=== PATIENT | female | born 1965 | race Caucasian/White ===

== ENCOUNTER 2020-08-08 15:34 | Outpatient (CLI) | payer BC ==
--- NOTE | 2020-08-08 16:37 | XRAY Report ---
PROCEDURE: Tib/Fib LT INDICATIONS: L LEG PX TECHNIQUE: 2 views of the tibia and fibula were acquired. COMPARISON: None. FINDINGS: Plate and screw fixation of the proximal tibia. Hardware appears intact. Expected postoperative align ment Left knee joint degeneration. Scattered subchondral sclerosis and spurring. Soft tissue swellin g overlying the medial malleolus IMPRESSION: Postsurgical and degenerative changes as above Reviewed by: Brian Calderon MD on 08/08/2020 4:35 PM PST Approved by: Brian Calderon MD on 08/08/2020 4:35 PM PST Station ID: [id number]
== END 2020-08-08 15:35 | disposition home or self-care (01) ==
LOC: DI.N 15:34
PROVIDERS: ATTEND Nurse Practitioner
DX: M79.605 Pain in left leg (principal)

== ENCOUNTER 2020-11-23 14:59 | Outpatient (CLI) | payer BC | END 2020-11-23 23:59 | disposition home or self-care (01) | LOC: LAB.R 14:59 | PROVIDERS: ATTEND Physician Assistant Medical | DX: R21 Rash and other nonspecific skin eruption (principal) | CPT/HCPCS: 87070; 87081; 87205 ==

== ENCOUNTER 2021-01-17 09:09 | Outpatient (CLI) | payer BC ==
[2021-01-17 09:45] LABS: BASOPHILS % (AUTO) 0.5 %; EOSINOPHILS # (AUTO) 0.1 10^3/uL (0.0-0.7); HGB - HEMOGLOBIN 13.4 g/dL (12.0-16.0); LYMPHOCYTES # (AUTO) 1.3 10^3/uL (1.5-3.5); MEAN CORPUSCULAR HEMOGLOBIN 29.5 pg (27.0-31.0); MEAN CORPUSCULAR HGB CONC 32.7 g/dL (32.0-36.0); MEAN CORPUSCULAR VOLUME 90.1 fL (81.0-99.0); MEAN PLATELET VOLUME 8.7 fL (7.9-10.8); MONOCYTES # (AUTO) 0.4 10^3/uL (0.0-1.0); MONOCYTES % (AUTO) 6.8 %; NEUTROPHILS # (AUTO) 3.6 10^3/uL (1.5-6.6); NEUTROPHILS % (AUTO) 66.3 %; PLT - PLATELET COUNT 259 10^3/uL (130-450); RED BLOOD COUNT 4.55 10^6/uL (4.20-5.40); RED CELL DISTRIBUTION WIDTH 13.1 % (12.0-15.0); WHITE BLOOD COUNT 5.5 x10^3/uL (4.8-10.8)
[2021-01-17 10:05] LABS: ALBUMIN/GLOBULIN RATIO 1.2 (1.0-2.2); ALKALINE PHOSPHATASE 86 IU/L (42-121); ALT ALANINE AMINOTRANSFERASE 29 IU/L (10-60); AST ASPARTATE AMINOTRANSFERASE 25 IU/L (10-42); BILIRUBIN,TOTAL 0.7 mg/dL (0.2-1.0); BUN - BLOOD UREA NITROGEN 16 mg/dL (6-20); CALCIUM 9.1 mg/dL (8.5-10.3); CARBON DIOXIDE - CO2 28 mmol/L (21-32); CHLORIDE 104 mmol/L (101-111); CHOL/HDL RATIO 3.8 (<4.4); CHOLESTEROL 181 mg/dL; CREATININE 0.7 mg/dL (0.4-1.0); GFR - MDRD 87 (>89); GLUCOSE 98 mg/dL (70-100); HDL CHOLESTEROL 48 mg/dL; LDL CHOLESTEROL,CALCULATED 122 mg/dL; LDL/HDL RATIO 2.5 (<4.4); POTASSIUM 4.3 mmol/L (3.5-5.0); SODIUM 140 mmol/L (135-145); TOTAL PROTEIN 7.4 g/dL (6.7-8.2); TRIGLYCERIDES 54 mg/dL; VLDL CHOLESTEROL 11 mg/dL
[2021-01-17 10:15] LABS: THYROID STIMULATING HORMONE 1.21 uIU/mL (0.34-5.60)
== END 2021-01-17 09:10 | disposition home or self-care (01) ==
LOC: LAB 09:09
PROVIDERS: ATTEND Physician Assistant Medical
DX: Z00.00 Encounter for general adult medical examination without abnormal findings (principal); R21 Rash and other nonspecific skin eruption
CPT/HCPCS: 36415; 80053; 80061; 83721; 84443; 85025

== ENCOUNTER 2022-11-23 07:28 | Outpatient (CLI) | payer BC ==
[2022-11-23 07:50] LABS: BASOPHILS % (AUTO) 0.7 %; EOSINOPHILS # (AUTO) 0.1 10^3/uL (0.0-0.7); EOSINOPHILS % (AUTO) 1.6 %; HCT - HEMATOCRIT 41.2 % (37.0-47.0); HGB - HEMOGLOBIN 13.9 g/dL (12.0-16.0); LYMPHOCYTES # (AUTO) 1.3 10^3/uL (1.5-3.5); LYMPHOCYTES % (AUTO) 24.4 %; MEAN CORPUSCULAR HGB CONC 33.7 g/dL (32.0-36.0); MEAN CORPUSCULAR VOLUME 88.8 fL (81.0-99.0); MEAN PLATELET VOLUME 8.9 fL (7.9-10.8); MONOCYTES # (AUTO) 0.4 10^3/uL (0.0-1.0); MONOCYTES % (AUTO) 6.4 %; NEUTROPHILS # (AUTO) 3.6 10^3/uL (1.5-6.6); NEUTROPHILS % (AUTO) 66.5 %; PLT - PLATELET COUNT 236 10^3/uL (130-450); RED BLOOD COUNT 4.64 10^6/uL (4.20-5.40); RED CELL DISTRIBUTION WIDTH 12.6 % (12.0-15.0); WHITE BLOOD COUNT 5.5 x10^3/uL (4.8-10.8)
[2022-11-23 08:13] LABS: ALBUMIN 4.2 g/dL (3.2-5.5); ALBUMIN/GLOBULIN RATIO 1.3 (1.0-2.2); ALKALINE PHOSPHATASE 78 IU/L (42-121); ALT ALANINE AMINOTRANSFERASE 28 IU/L (10-60); AST ASPARTATE AMINOTRANSFERASE 29 IU/L (10-42); BILIRUBIN,TOTAL 0.8 mg/dL (0.2-1.0); BUN - BLOOD UREA NITROGEN 21 mg/dL (6-20); CALCIUM 8.8 mg/dL (8.5-10.3); CARBON DIOXIDE - CO2 25 mmol/L (21-32); CHLORIDE 102 mmol/L (101-111); CHOL/HDL RATIO 3.8 (<4.4); CHOLESTEROL 185 mg/dL; CREATININE 0.7 mg/dL (0.4-1.0); GFR - MDRD 86 (>89); GLUCOSE 106 mg/dL (70-100); HDL CHOLESTEROL 49 mg/dL; LDL CHOLESTEROL,CALCULATED 125 mg/dL; LDL/HDL RATIO 2.6 (<4.4); POTASSIUM 3.8 mmol/L (3.5-5.0); SODIUM 137 mmol/L (135-145); TOTAL PROTEIN 7.4 g/dL (6.7-8.2); TRIGLYCERIDES 56 mg/dL; VLDL CHOLESTEROL 11 mg/dL
[2022-11-23 08:24] LABS: THYROID STIMULATING HORMONE 1.49 uIU/mL (0.34-5.60)
== END 2022-11-23 07:29 | disposition home or self-care (01) ==
LOC: LAB 07:28
PROVIDERS: ATTEND Physician Assistant Medical
DX: Z00.00 Encounter for general adult medical examination without abnormal findings (principal)
CPT/HCPCS: 36415; 80053; 80061; 83721; 84443; 85025

== ENCOUNTER 2024-01-22 09:34 | Outpatient (CLI) | payer BC ==
[2024-01-22 10:00] LABS: BASOPHILS # (AUTO) 0.1 10^3/uL (0.0-0.1); BASOPHILS % (AUTO) 0.9 %; EOSINOPHILS # (AUTO) 0.1 10^3/uL (0.0-0.7); EOSINOPHILS % (AUTO) 2.5 %; HCT - HEMATOCRIT 41.5 % (37.0-47.0); HGB - HEMOGLOBIN 13.6 g/dL (12.0-16.0); LYMPHOCYTES # (AUTO) 1.5 10^3/uL (1.5-3.5); LYMPHOCYTES % (AUTO) 26.9 %; MEAN CORPUSCULAR HGB CONC 32.8 g/dL (32.0-36.0); MEAN CORPUSCULAR VOLUME 91.4 fL (81.0-99.0); MEAN PLATELET VOLUME 8.8 fL (7.9-10.8); MONOCYTES # (AUTO) 0.4 10^3/uL (0.0-1.0); MONOCYTES % (AUTO) 6.5 %; NEUTROPHILS # (AUTO) 3.5 10^3/uL (1.5-6.6); NEUTROPHILS % (AUTO) 63.2 %; PLT - PLATELET COUNT 254 10^3/uL (130-450); RED BLOOD COUNT 4.54 10^6/uL (4.20-5.40); RED CELL DISTRIBUTION WIDTH 12.6 % (12.0-15.0); WHITE BLOOD COUNT 5.5 x10^3/uL (4.8-10.8)
[2024-01-22 10:07] LABS: ALBUMIN 4.2 g/dL (3.2-5.5); ALBUMIN/GLOBULIN RATIO 1.5 (1.0-2.2); ALKALINE PHOSPHATASE 75 IU/L (42-121); ALT ALANINE AMINOTRANSFERASE 31 IU/L (10-60); AST ASPARTATE AMINOTRANSFERASE 25 IU/L (10-42); BILIRUBIN,TOTAL 0.7 mg/dL (0.2-1.0); BUN - BLOOD UREA NITROGEN 18 mg/dL (6-20); CALCIUM 9.4 mg/dL (8.5-10.3); CARBON DIOXIDE - CO2 33 mmol/L (21-32); CHLORIDE 103 mmol/L (101-111); CHOL/HDL RATIO 3.3 (<4.4); CHOLESTEROL 163 mg/dL; CREATININE 0.7 mg/dL (0.6-1.3); GFR - MDRD 86 (>89); GLUCOSE 99 mg/dL (74-104); HDL CHOLESTEROL 50 mg/dL; LDL CHOLESTEROL,CALCULATED 97 mg/dL; LDL/HDL RATIO 1.9 (<4.4); POTASSIUM 3.9 mmol/L (3.5-4.5); SODIUM 139 mmol/L (135-145); TRIGLYCERIDES 78 mg/dL (48-352); VLDL CHOLESTEROL 16 mg/dL
[2024-01-22 10:22] LABS: THYROID STIMULATING HORMONE 1.38 uIU/mL (0.34-5.60)
== END 2024-01-22 09:35 | disposition home or self-care (01) ==
LOC: LAB 09:34
PROVIDERS: ATTEND Physician Assistant Medical
DX: Z00.00 Encounter for general adult medical examination without abnormal findings (principal)
CPT/HCPCS: 36415; 80053; 80061; 83721; 84443; 85025

== ENCOUNTER 2024-02-20 08:32 | Outpatient (CLI) | payer BC ==
--- NOTE | 2024-02-20 11:28 | Ultrasound Report ---
PROCEDURE: Duplex Ext Veins Left INDICATIONS: INDURATION OF SKIN TECHNIQUE: Real-time imaging, as well as color and pulse Doppler interrogation, were performed of the lower extr emity deep veins from the inguinal ligament to the popliteal fossa. Attempted visualization of the ca lf veins was performed. COMPARISON: None. FINDINGS: The deep veins are normally compressible, and free of intraluminal thrombus. Color and pu lse Doppler demonstrate normal phasic intraluminal flow. There is normal augmentation response to di stal compression maneuver. IMPRESSION: No deep venous thrombosis of the left lower extremity. Reviewed by: Isacc Hurtado MD on 02/20/2024 11:27 AM PDT Approved by: Isacc Hurtado MD on 02/20/2024 11:27 AM PDT Station ID: [id number]
--- NOTE | 2024-02-20 16:20 | Ultrasound Report ---
PROCEDURE: Ankle Brachial Index INDICATIONS: INDURATION OF SKIN TECHNIQUE: Ankle-brachial indices were obtained bilaterally and recorded. COMPARISONS: None. FINDINGS: Right brachial: 175 mmHg Right ankle: 186 mmHg Right ankle brachial index (TA): 1.06 Left brachial: ): 158mmHg Left ankle: ): 178mmHg Left ankle brachial index (TA): 1.02 Multiphasic waveforms in the bilateral distal posterior tibial and dorsalis pedis arteries. Healing potential: Ankle pressures >55 mm Hg in non-diabetics and >80 mm Hg in diabetics are likely to achieve primary h ealing of ischemic foot ulcers. Toe pressures >30 mm Hg are likely to achieve primary healing of ischemic foot ulcers, toe or transme tatarsal amputations. IMPRESSION: 1.Resting TA is normal on the right at 1.1 and normal on the left at 1. 2.Greater than 10 mmHg difference in the bilateral brachial pressures is nonspecific and may be seen in the setting of a hemodynamically significant subclavian artery stenosis. Reviewed by: González Griffith MD on 02/20/2024 4:18 PM PDT Approved by: González Griffith MD on 02/20/2024 4:18 PM PDT Station ID: [id number]
== END 2024-02-20 08:33 | disposition home or self-care (01) ==
LOC: DI 08:32
PROVIDERS: ATTEND Physician Assistant Medical
DX: R23.4 Changes in skin texture (principal)
CPT/HCPCS: 93922

== ENCOUNTER 2024-03-12 17:05 | Outpatient (CLI) | payer BC ==
--- NOTE | 2024-03-16 12:33 | Ultrasound Report ---
PROCEDURE: Arterial Duplex Lwr Ext BL INDICATIONS: HYPERTENSION, ABN TA TECHNIQUE: Color and pulse Doppler interrogation was performed of both lower extremity arterial systems, with im age documentation. COMPARISON: None FINDINGS: Right lower extremity: Common femoral artery: 20 cm/sec, Deep femoral artery: 41 cm/sec, Proximal superficial femoral artery: 113 cm/sec, Mid superficial femoral artery: 101 cm/sec, Distal superficial femoral artery: 89 cm/sec, Popliteal artery: 61 cm/sec, . Posterior tibial artery: 137 cm/sec, Anterior tibial artery/dorsalis pedis: 128/81 cm/sec, Rojo-scale imaging description: No significant atherosclerotic plaque. Triphasic waveforms are seen throughout Left lower extremity: Common femoral artery: 110 cm/sec, Deep femoral artery: 93 cm/sec, Proximal superficial femoral artery: 146 cm/sec, Mid superficial femoral artery: 1:30 cm/sec, Distal superficial femoral artery: 120 cm/sec, Popliteal artery: 70 cm/sec, . Posterior tibial artery: 147 cm/sec, Anterior tibial artery/dorsalis pedis: 123/46 cm/sec, Rojo-scale imaging description: No significant atherosclerotic plaque. Triphasic waveforms are seen throughout IMPRESSION: Patent lower extremity vasculature without hemodynamically significant stenosis. Reviewed by: Bryant Farrell MD on 03/16/2024 12:32 PM PDT Approved by: Bryant Farrell MD on 03/16/2024 12:32 PM PDT Station ID: [id number]
== END 2024-03-12 17:06 | disposition home or self-care (01) ==
LOC: DI 17:05
PROVIDERS: ATTEND Physician Assistant Medical
DX: I10 Essential (primary) hypertension (principal)
CPT/HCPCS: 93925

== ENCOUNTER 2024-04-05 13:00 | Outpatient (CLI) | payer BC ==
--- NOTE | 2024-04-06 09:36 | Ultrasound Report ---
PROCEDURE: Arterial Duplex Upr Ext BL INDICATIONS: BENIGN ESSENTIAL HYPERTENSION TECHNIQUE: Color and pulse Doppler interrogation was performed of both upper extremity arterial systems, with im age documentation. COMPARISON: 03/12/2024. FINDINGS: Right upper extremity: Subclavian artery (mid): 89 cm/sec, with triphasic flow. Axillary artery: 189 cm/sec, with biphasic flow. Brachial artery (mid): 89 cm/sec, with triphasic flow. Radial artery (proximal): 81 cm/sec, with triphasic flow. Radial artery (mid): 89 cm/sec, with triphasic flow. Radial artery (distal): 99 cm/sec, with monophasic flow. Ulnar artery (proximal): 66 cm/sec, with triphasic flow. Ulnar artery (mid): 40 cm/sec, with triphasic flow. Ulnar artery (distal): 34 cm/sec, with monophasic flow. Rojo-scale imaging description: No plaques Left upper extremity: Subclavian artery (mid): 161 cm/sec, with triphasic flow. Axillary artery: 216 cm/sec, with triphasic flow. Brachial artery (mid): 85 cm/sec, with triphasic flow. Radial artery (proximal): 75 cm/sec, with triphasic flow. Radial artery (mid): 81 cm/sec, with monophasic flow. Radial artery (distal): 67 cm/sec, with triphasic flow. Ulnar artery (proximal): 63 cm/sec, with triphasic flow. Ulnar artery (mid): 73 cm/sec, with triphasic flow. Ulnar artery (distal): 63 cm/sec, with triphasic flow. Rojo-scale imaging description: No complex IMPRESSION: Elevated velocities visualized in the mid right axillary and subclavian arteries as well as in the mi d left axillary arteries. Reviewed by: Joanne Cerda MD, PhD on 04/06/2024 9:35 AM PDT Approved by: Joanne Cerda MD, PhD on 04/06/2024 9:35 AM PDT Station ID: [id number]
== END 2024-04-05 13:01 | disposition home or self-care (01) ==
LOC: DI 13:00
PROVIDERS: ATTEND Physician Assistant Medical
DX: I10 Essential (primary) hypertension (principal)
CPT/HCPCS: 93930